=== PATIENT | female | born 1995 | race Caucasian/White ===

== ENCOUNTER 2018-02-07 20:50 | Emergency (ER) | payer OTHER ==
[~2018-02-07] VITALS: Ht 165.1 cm; Wt 93.4 kg
[2018-02-07] MEDS ORDERED: FOLIC ACID1 MG (21:35)
== END 2018-02-08 11:17 | disposition home or self-care (01) ==
LOC: ER 20:50
DX: O20.8 Other hemorrhage in early pregnancy (principal); Z34.01 Encounter for supervision of normal first pregnancy, first trimester

== ENCOUNTER 2020-02-15 17:18 | Emergency (ER) | payer OTHER, BC ==
[~2020-02-15] VITALS: Ht 165.1 cm; Wt 89.4 kg
[~2020-02-15 17:18] MED LIST: FOLIC ACID1 MG
[2020-02-15] MEDS ORDERED: TRI-SPRINTEC T1 EACH (17:25)
[2020-02-15] MEDS ORDERED: MEDROXYPROGESTE10 MG PO (19:11)
== END 2020-02-15 19:14 | disposition home or self-care (01) ==
LOC: ER 17:18
DX: N93.8 Other specified abnormal uterine and vaginal bleeding (principal)